=== PATIENT | male | born 1940 | race Caucasian/White ===

== ENCOUNTER 2017-12-28 11:22 | Observation (INO) ==
[2017-12-28 13:14] LABS: Apearance,Urine CLEAR (Clear); Bilirubin,Urine Negative (Negative); Blood, Urine Small mg/dL (Negative); Glucose,Urine (UA) Negative (Negative); Ketones,Urine Negative (Negative); Mucus,Urine Occasional /LPF (Occasional); Nitrite,Urine Negative (Negative); Protein,Urine Negative; RBC,Urine 8 /HPF (0-4); Squamous Epithelial Cell,Urine Occasional /HPF (0-10); Urine Color Yellow (Yellow); Urine Specific Gravity 1.016 (1.001-1.035); Urine Urobilinogen < 2.0 EU/DL (0.2-1.0); WBC,Urine 2 /HPF (0-6)
[2017-12-28 14:13] LABS: Basophils % 0.2 % (0.0-0.8); Eosinophils # 0.1 10*3/uL (0.0-0.87); Eosinophils % 0.9 % (0.00-10.9); Hematocrit 41.5 VOL% (42.0-52.0); Hemoglobin 13.5 GM/DL (14.0-18.0); Immature Granulocytes % 0.3 %; Immature Granulocytes Absolute 0.03 #; Lymphocytes # 1.8 10*3/uL (1.4-4.0); Lymphocytes % 17.7 % (21.2-54.2); Mean Corpuscular HGB Conc 32.5 GM/DL (32-36); Mean Corpuscular Hemoglobin 30 PG (27-34); Mean Corpuscular Volume 92.4 FL (87-102); Mean Platelet Volume 9.6 FL (9.6-12.0); Monocytes # 1.2 10*3/uL (0.11-0.8); Monocytes % 11.9 % (1.7-12.7); Neutrophils # 6.9 10*3/uL (1.4-7.4); Platelet Count 295 T/CUMM (130-400); Red Blood Count 4.49 MC/CUMM (3.8-5.5); Red Cell Distribution Width 14.2 % (9.3-17.3); White Blood Count 10.1 T/CUMM (4-12)
[2017-12-28 14:38] LABS: Alanine Aminotransferase 30 U/L (16-61); Albumin 3.6 G/DL (3.4-5.0); Alkaline Phosphatase 71 U/L (45-117); Aspartate Amino Transferase 16 U/L (0-37); Bilirubin,Total < 0.39 MG/DL (0.2-1.0); Blood Urea Nitrogen 16 MG/DL (7-18); Calcium 9.1 MG/DL (8.5-10.1); Glucose 112 MG/DL (74-106); Osmolality,Calculated 276.7 MOS/KG (273-304); Potassium 3.8 MMOL/L (3.5-5.1); Sodium 138 MMOL/L (136-145); Total Protein 7.9 G/DL (6.4-8.3)
[2017-12-28] MEDS ORDERED: ONDANSETRON 4 MG/2 ML VIAL IV PRN (17:58)
[2017-12-28] MEDS: SODIUM CHLORIDE 0.9% 1,000 ML IV SCH (18:43)
[2017-12-28] MEDS: POLYETHYLENE GLYCOL POWDER 17 GM PACK PO SCH (21:05)
[2017-12-28] MEDS: LACTULOSE 20 GM/30 ML UDCUP PO SCH (21:05)
[2017-12-28] MEDS: DOCUSATE SODIUM 100 MG CAPSULE PO SCH (21:05)
[2017-12-28] MEDS ORDERED: ZIPRASIDONE 20 MG/1 ML VIAL IM ONE (23:20)
[2017-12-29] MEDS: LACTULOSE 20 GM/30 ML UDCUP PO SCH ×6 (03:03→21:12)
[2017-12-29 05:55] LABS: Basophils % 0.3 % (0.0-0.8); Eosinophils # 0.3 10*3/uL (0.0-0.87); Eosinophils % 3.4 % (0.00-10.9); Hematocrit 37.2 VOL% (42.0-52.0); Immature Granulocytes % 0.3 %; Immature Granulocytes Absolute 0.02 #; Lymphocytes # 1.7 10*3/uL (1.4-4.0); Lymphocytes % 22.9 % (21.2-54.2); Mean Corpuscular HGB Conc 32.3 GM/DL (32-36); Mean Corpuscular Hemoglobin 30 PG (27-34); Mean Corpuscular Volume 93.5 FL (87-102); Mean Platelet Volume 9.7 FL (9.6-12.0); Monocytes # 1.1 10*3/uL (0.11-0.8); Monocytes % 15.4 % (1.7-12.7); Neutrophils # 4.2 10*3/uL (1.4-7.4); Neutrophils % 57.7 % (38.7-73.9); Platelet Count 256 T/CUMM (130-400); Red Blood Count 3.98 MC/CUMM (3.8-5.5); Red Cell Distribution Width 14.3 % (9.3-17.3); White Blood Count 7.3 T/CUMM (4-12)
[2017-12-29 06:30] LABS: Osmolality,Calculated 278.4 MOS/KG (273-304); Potassium 3.6 MMOL/L (3.5-5.1)
[2017-12-29] MEDS: DOCUSATE SODIUM 100 MG CAPSULE PO SCH ×2 (08:53→20:31)
[2017-12-29] MEDS: PANTOPRAZOLE 40 MG VIAL IV SCH (09:02)
[2017-12-29] MEDS: POLYETHYLENE GLYCOL POWDER 17 GM PACK PO SCH (09:03)
[2017-12-29] MEDS ORDERED: MINERAL OIL 30 ML UDCUP PO ONE (15:55)
[2017-12-29] MEDS: SODIUM CHLORIDE 0.9% 1,000 ML IV SCH ×2 (20:30→22:23)
[2017-12-30] MEDS: LACTULOSE 20 GM/30 ML UDCUP PO SCH ×6 (01:02→21:02)
[2017-12-30 03:41] LABS: Basophils % 0.1 % (0.0-0.8); Eosinophils # 0.1 10*3/uL (0.0-0.87); Eosinophils % 0.7 % (0.00-10.9); Hematocrit 39.2 VOL% (42.0-52.0); Hemoglobin 12.4 GM/DL (14.0-18.0); Immature Granulocytes % 0.4 %; Immature Granulocytes Absolute 0.04 #; Lymphocytes # 1.1 10*3/uL (1.4-4.0); Lymphocytes % 11.4 % (21.2-54.2); Mean Corpuscular HGB Conc 31.6 GM/DL (32-36); Mean Corpuscular Hemoglobin 30 PG (27-34); Mean Platelet Volume 9.6 FL (9.6-12.0); Monocytes % 10.3 % (1.7-12.7); Neutrophils # 7.7 10*3/uL (1.4-7.4); Neutrophils % 77.1 % (38.7-73.9); Platelet Count 279 T/CUMM (130-400); Red Blood Count 4.17 MC/CUMM (3.8-5.5); Red Cell Distribution Width 14.3 % (9.3-17.3); White Blood Count 9.9 T/CUMM (4-12)
[2017-12-30 04:02] LABS: Potassium 3.4 MMOL/L (3.5-5.1)
[2017-12-30] MEDS: PANTOPRAZOLE 40 MG VIAL IV SCH (08:50)
[2017-12-30] MEDS: DOCUSATE SODIUM 100 MG CAPSULE PO SCH ×2 (08:50→20:38)
[2017-12-30] MEDS: POTASSIUM CHLORIDE 20 MEQ TABLET PO PRN ×2 (14:15→16:03)
[2017-12-30] MEDS ORDERED: MINERAL OIL ENEMA 133 ML BOTTLE RECTAL ONE (17:02)
[2017-12-30] MEDS: SODIUM CHLORIDE 0.9% 1,000 ML IV SCH (18:26)
[2017-12-30] MEDS: MINERAL OIL 30 ML UDCUP PO SCH (20:38)
[2017-12-30] MEDS: LUBIPROSTONE 24 MCG CAPSULE PO SCH (20:38)
[2017-12-31] MEDS: LACTULOSE 20 GM/30 ML UDCUP PO SCH ×6 (02:16→21:04)
[2017-12-31 05:17] LABS: Calcium 7.9 MG/DL (8.5-10.1); Potassium 3.9 MMOL/L (3.5-5.1)
[2017-12-31] MEDS ORDERED: PANTOPRAZOLE 40 MG TABLET PO SCH (09:00)
[2017-12-31] MEDS: LUBIPROSTONE 24 MCG CAPSULE PO SCH ×2 (09:24→21:03)
[2017-12-31] MEDS: DOCUSATE SODIUM 100 MG CAPSULE PO SCH ×2 (09:24→21:04)
[2017-12-31] MEDS: MINERAL OIL 30 ML UDCUP PO SCH ×2 (09:24→21:04)
[2017-12-31] MEDS ORDERED: POLYETHYLENE GLYCOL 3350/ELECTROLYTES 4,000 ML BOTTLE NG ONE (09:53)
[2017-12-31] MEDS: SODIUM CHLORIDE 0.9% 1,000 ML IV SCH ×2 (12:43→15:29)
[2017-12-31] MEDS ORDERED: FUROSEMIDE 40 MG/4 ML VIAL IV ONE (14:38)
[2017-12-31] MEDS: ALBUTEROL/IPRATROPIUM 3 ML NEB RESP TX SCH ×3 (14:48→23:10)
[2017-12-31] MEDS: methylPREDNISolone SOD SUC 40 MG/1 ML VIAL IV SCH (16:02)
[2017-12-31] MEDS ORDERED: DORNASE ALFA 2.5 MG/2.5 ML VIAL RESP TX SCH (19:00)
[2017-12-31] MEDS ORDERED: FINASTERIDE 5 MG TABLET PO SCH (21:00)
[2017-12-31] MEDS ORDERED: TAMSULOSIN 0.4 MG CAPSULE PO SCH (21:00)
[2018-01-01 01:21] LABS: ABG Base Excess -9.6 MMOL/L (-2.5-2.5); ABG Oxygen Saturation 92.9 % (95-100); ABG PCO2 45.9 MM HG (35-48); ABG PH 7.212 (7.35-7.45); ABG PO2 83.8 MM HG (80-95); ABG TCO2 19.4 MMOL/L (23-27)
[2018-01-01 02:03] LABS: Calcium 7.9 MG/DL (8.5-10.1); Osmolality,Calculated 292.8 MOS/KG (273-304)
[2018-01-01] MEDS ORDERED: SODIUM CHLORIDE 0.9% 1,000 ML IV ONE (02:10)
[2018-01-01] MEDS ORDERED: VECURONIUM 10 MG VIAL IV ONE ×2 (02:15→02:25)
[2018-01-01] MEDS ORDERED: SUCCINYLCHOLINE 200 MG/10 ML VIAL ONE (02:16)
[2018-01-01] MEDS ORDERED: ETOMIDATE 20 MG/10 ML VIAL IV ONE ×2 (02:16→02:30)
[2018-01-01] MEDS ORDERED: PROPOFOL 1,000 MG/100 ML BOTTLE IV ONE (02:28)
[2018-01-01] MEDS ORDERED: CLINDAMYCIN INJ 900 MG in PREMIX 1 EACH IV SCH (02:30)
[2018-01-01] MEDS ORDERED: ENOXAPARIN 100 MG/ML SYRINGE SUBCUT ONE (03:00)
[2018-01-01] MEDS ORDERED: cefTRIAXone 2,000 MG in SYRINGE 1 EACH IV SCH (03:00)
[2018-01-01 03:04] LABS: ABG Base Excess -12.5 MMOL/L (-2.5-2.5); ABG HCO3 15.5 MMOL/L (20-26); ABG Oxygen Saturation 92.4 % (95-100); ABG PCO2 43.7 MM HG (35-48); ABG PO2 84.4 MM HG (80-95); ABG TCO2 16.9 MMOL/L (23-27)
[2018-01-01 03:05] LABS: ABG PH 7.168 (7.35-7.45)
[2018-01-01] MEDS ORDERED: LIDOCAINE 1% 20 ML VIAL ONE (03:14)
[2018-01-01] MEDS ORDERED: PROPOFOL 1,000 MG/100 ML BOTTLE IV SCH (03:30)
[2018-01-01] MEDS ORDERED: TIROFIBAN 5,000 MCG/100 ML PREMIX IV ONE (03:36)
[2018-01-01] MEDS ORDERED: ENOXAPARIN 30 MG/0.3 ML SYRINGE ONE (03:36)
[2018-01-01] MEDS ORDERED: TIROFIBAN 5,000 MCG/100 ML PREMIX IV SCH (03:40)
[2018-01-01] MEDS ORDERED: NOREPINEPHRINE 4 MG/4 ML VIAL IV ONE ×2 (03:41→06:02)
[2018-01-01] MEDS: LACTULOSE 20 GM/30 ML UDCUP PO SCH (03:52)
[2018-01-01] MEDS: methylPREDNISolone SOD SUC 40 MG/1 ML VIAL IV SCH (03:59)
[2018-01-01] MEDS ORDERED: VERAPAMIL 5 MG/2 ML VIAL ONE (04:07)
[2018-01-01] MEDS ORDERED: NITROPRUSSIDE 50 MG/2 ML VIAL ONE (04:07)
[2018-01-01] MEDS: ALBUTEROL/IPRATROPIUM 3 ML NEB RESP TX SCH (04:13)
[2018-01-01 04:34] LABS: ABG Base Excess -11.8 MMOL/L (-2.5-2.5); ABG PO2 60.1 MM HG (80-95); ABG TCO2 26.7 MMOL/L (23-27)
[2018-01-01 04:35] LABS: ABG PH 6.895 (7.35-7.45)
[2018-01-01 04:36] LABS: ABG PCO2 121.5 MM HG (35-48)
[2018-01-01] MEDS ORDERED: NOREPINEPHRINE 8 MG in SODIUM CHLORIDE 0.9% 242 ML IV PRN (04:45)
[2018-01-01 06:10] VITALS: BP 38/23
[2018-01-01] MEDS ORDERED: ASPIRIN 300 MG SUPP RECTAL SCH (09:00)
== END 2018-01-01 06:13 | disposition expired ==
LOC: N.ED 11:22 → N.ICU 11:22 → N.EDINP 11:22 → N.2E 18:25 → N.ICU 01-01 01:40 → UNDODISIN 01-01 10:36
PROVIDERS: ADMIT Hospitalist; ATTEND Hospitalist